=== PATIENT | male | born 1955 | race Caucasian/White ===

== ENCOUNTER → 2017-02-18 | Outpatient (CLI) | payer OTHER ==
[~2017-02-18] MED LIST: ALLO100T30 PO; OMNIPAQUE 350 MG/ML, 100ML BOTTLE ONE
[2017-02-18 15:39] LABS: ASPARTATE AMINO TRANSFERASE 16 U/L (15-37); BLOOD UREA NITROGEN 6 mg/dL (7-18)
[2017-02-18 15:45] LABS: PROSTATE SPECIFIC ANTIGEN 7.92 ng/mL (0.00-4.00)
== END | disposition home or self-care (01) ==
LOC: CFH 12:26
DX: N40.0 Benign prostatic hyperplasia without lower urinary tract symptoms (principal); N32.9 Bladder disorder, unspecified; M48.06 Spinal stenosis, lumbar region; M48.54XA Collapsed vertebra, not elsewhere classified, thoracic region, initial encounter for fracture; M87.88 Other osteonecrosis, other site; R63.4 Abnormal weight loss
CPT/HCPCS: 36415; 74177; 80053; 82565; 83690; 84153; 85025; Q9967

== ENCOUNTER → 2017-04-14 | Outpatient (CLI) | payer OTHER ==
[~2017-04-14] MED LIST changes: -OMNIPAQUE 350 MG/ML, 100ML BOTTLE ONE
== END | disposition home or self-care (01) ==
LOC: CFH 09:43
DX: R00.0 Tachycardia, unspecified (principal)
CPT/HCPCS: 36415; 84436; 84443; 84479

== ENCOUNTER 2018-03-24 16:55 | Emergency (ER) | payer OTHER ==
[~2018-03-24] VITALS: Ht 177.8 cm; Wt 82.1 kg
[2018-03-24 17:52] LABS: BASOPHILS # (AUTO) 0.03 x10^3/uL (0-0.1); BASOPHILS % (AUTO) 0 % (0-1); EOSINOPHILS # (AUTO) 0.09 x10^3/uL (0-0.4); EOSINOPHILS % (AUTO) 1 % (1-7); LYMPHOCYTES # (AUTO) 1.41 x10^3/uL (1-3.4); LYMPHOCYTES % (AUTO) 20 % (22-44); MD NO; MEAN CORPUSCULAR HEMOGLOBIN 29.5 pg (27.5-34.5); MEAN CORPUSCULAR HGB CONC 33.3 g/dL (33.2-36.2); MEAN CORPUSCULAR VOLUME 88.7 fL (81-97); MEAN PLATELET VOLUME 7.9 fL (7.4-10.4); MONOCYTES # (AUTO) 0.45 x10^3/uL (0.2-0.8); MONOCYTES % (AUTO) 6 % (2-9); NEUTROPHILS # (AUTO) 5.02 x10^3/uL (1.8-6.8); NEUTROPHILS % (AUTO) 72 % (42-75); PLATELET COUNT 253 x10^3/uL (130-400); RED BLOOD COUNT 4.42 x10^6/uL (4.38-5.82); RED CELL DISTRIBUTION WIDTH 15.6 % (9.4-14.8)
[2018-03-24 18:00] LABS: ALBUMIN 3.5 g/dL (3.4-5.0); ANION GAP 9 mmol/L (5-15); CALCIUM 8.4 mg/dL (8.5-10.1); CHLORIDE 111 mmol/L (98-107)
[2018-03-24] MEDS ORDERED: METOPROLOL 1 MG/ML, 5ML IVPush ONE (18:00)
[2018-03-24 18:01] LABS: CREATININE 1.21 mg/dL (0.7-1.3)
[2018-03-24] MEDS ORDERED: METOPROLOL 1 MG/ML, 5ML ONE (18:04)
[2018-03-24] MEDS ORDERED: SODIUM CHLORIDE FLUSH 10ML SYR IVF ONE (19:00)
[2018-03-24 19:08] VITALS: BP 163/88
[2018-03-24 19:23] LABS: MICROSCOPIC AUTO
[2018-03-24] MEDS ORDERED: LISINOPRIL 10 MG TABLET PO ONE (19:30)
[2018-03-24] MEDS ORDERED: LISINOPRIL 10 MG TABLET ONE (19:30)
[2018-03-24 19:43] LABS: CULTURE INDICATED? YES
== END 2018-03-24 19:46 | disposition home or self-care (01) ==
LOC: ED 19:05
DX: I16.9 Hypertensive crisis, unspecified (principal); R82.99 Other abnormal findings in urine
CPT/HCPCS: 36415; 71046; 80048; 81001; 82040; 85025; 87086; 93005; 96374

== ENCOUNTER 2018-05-03 11:01 | Inpatient (IN) | payer OTHER ==
[~2018-05-03] VITALS: Ht 177.8 cm; Wt 82.5 kg
[2018-05-03] MEDS ORDERED: ONDANSETRON ODT 4 MG PO ONE (13:00)
[2018-05-03] MEDS ORDERED: SODIUM CHLORIDE FLUSH 10ML SYR IVF ONE ×2 (13:00→14:00)
[2018-05-03] MEDS ORDERED: ONDANSETRON ODT 4 MG ONE (13:12)
[2018-05-03] MEDS ORDERED: MORPHINE SULFATE 4 MG/ML, 1ML ONE ×2 (13:12→13:35)
[2018-05-03] MEDS: MORPHINE SULFATE 4 MG/ML, 1ML IVPush PRN ×2 (13:18→13:37)
[2018-05-03 13:21] LABS: BASOPHILS # (AUTO) 0.07 x10^3/uL (0-0.1); BASOPHILS % (AUTO) 1 % (0-1); EOSINOPHILS # (AUTO) 0.07 x10^3/uL (0-0.4); EOSINOPHILS % (AUTO) 1 % (1-7); LYMPHOCYTES # (AUTO) 1.53 x10^3/uL (1-3.4); LYMPHOCYTES % (AUTO) 12 % (22-44); MD NO; MEAN CORPUSCULAR HEMOGLOBIN 29.6 pg (27.5-34.5); MEAN CORPUSCULAR HGB CONC 33.6 g/dL (33.2-36.2); MEAN CORPUSCULAR VOLUME 88.2 fL (81-97); MEAN PLATELET VOLUME 7.8 fL (7.4-10.4); MONOCYTES # (AUTO) 1.07 x10^3/uL (0.2-0.8); MONOCYTES % (AUTO) 9 % (2-9); NEUTROPHILS # (AUTO) 9.76 x10^3/uL (1.8-6.8); NEUTROPHILS % (AUTO) 78 % (42-75); PLATELET COUNT 243 x10^3/uL (130-400); RED BLOOD COUNT 4.55 x10^6/uL (4.38-5.82); RED CELL DISTRIBUTION WIDTH 14.4 % (9.4-14.8)
[2018-05-03 13:30] LABS: ALBUMIN 3.7 g/dL (3.4-5.0); ANION GAP 9 mmol/L (5-15); CALCIUM 8.8 mg/dL (8.5-10.1); CHLORIDE 102 mmol/L (98-107)
[2018-05-03 13:34] LABS: ALANINE AMINOTRANSFERASE 16 U/L (12-78); ALKALINE PHOSPHATASE 121 U/L (45-117); BILIRUBIN,TOTAL 2.1 mg/dL (0.2-1.0); CREATININE 1.64 mg/dL (0.7-1.3); TOTAL PROTEIN 7.4 g/dL (6.4-8.2)
[2018-05-03] MEDS ORDERED: HYDROmorphone 2 MG/ML, 1ML ONE (13:49)
[2018-05-03] MEDS ORDERED: SODIUM CHLORIDE 0.9% 1,000ML IVBOLUS ONE ×2 (14:00→16:00)
[2018-05-03] MEDS ORDERED: HYDROmorphone 2 MG/ML, 1ML IVPush PRN (14:00)
[2018-05-03 14:11] LABS: HCT (SEDRATE) 40.1 % (39.2-51.8)
[2018-05-03 14:57] LABS: CULTURE INDICATED? NO; MICROSCOPIC NOT IND
[2018-05-03] MEDS ORDERED: SODIUM BICARBONATE 4.0%, 5ML ONE (16:11)
[2018-05-03] MEDS ORDERED: LIDOCAINE-MPF 2%, 2ML ONE ×2 (16:11→16:12)
[2018-05-03] MEDS ORDERED: morphine SULFATE 10 MG/ML, 1ML IVPush PRN (17:00)
[2018-05-03] MEDS ORDERED: ONDANSETRON ODT 4 MG PO PRN (17:00)
[2018-05-03] MEDS ORDERED: ACETAMINOPHEN 325 MG TABLET PO PRN (17:00)
[2018-05-03] MEDS ORDERED: LISI-170 PO (17:15)
[2018-05-03] MEDS ORDERED: OMNIPAQUE 300 MG/ML, 10ML VIAL ONE (17:23)
[2018-05-03 17:52] VITALS: BP 117/71
[2018-05-03] MEDS: HEPARIN 5,000 UNITS/ML, 1ML SQ SCH (18:41)
[2018-05-03] MEDS: METHOCARBAMOL 500 MG TABLET PO PRN (18:41)
[2018-05-03] MEDS: SODIUM CHLORIDE 0.9% 1,000 ML IV SCH (18:42)
[2018-05-03] MEDS: LIDODERM 5% PATCH TD SCH (18:42)
[2018-05-03 19:22] VITALS: BP 118/69
[2018-05-03] MEDS: HYDROmorphone 2 MG/ML, 1ML IVPush PRN (22:17)
[2018-05-04 01:09] VITALS: BP 108/65
[2018-05-04] MEDS: HEPARIN 5,000 UNITS/ML, 1ML SQ SCH ×3 (02:05→18:41)
[2018-05-04] MEDS: SODIUM CHLORIDE 0.9% 1,000 ML IV SCH ×3 (02:06→18:41)
[2018-05-04] MEDS: HYDROmorphone 2 MG/ML, 1ML IVPush PRN ×5 (02:10→20:45)
[2018-05-04] MEDS: METHOCARBAMOL 500 MG TABLET PO PRN (03:20)
[2018-05-04 05:43] LABS: BASOPHILS # (AUTO) 0.03 x10^3/uL (0-0.1); BASOPHILS % (AUTO) 0 % (0-1); EOSINOPHILS # (AUTO) 0.11 x10^3/uL (0-0.4); EOSINOPHILS % (AUTO) 1 % (1-7); LYMPHOCYTES # (AUTO) 1.93 x10^3/uL (1-3.4); LYMPHOCYTES % (AUTO) 25 % (22-44); MD NO; MEAN CORPUSCULAR HEMOGLOBIN 29.7 pg (27.5-34.5); MEAN CORPUSCULAR HGB CONC 33.2 g/dL (33.2-36.2); MEAN CORPUSCULAR VOLUME 89.5 fL (81-97); MEAN PLATELET VOLUME 8.2 fL (7.4-10.4); MONOCYTES # (AUTO) 0.84 x10^3/uL (0.2-0.8); MONOCYTES % (AUTO) 11 % (2-9); NEUTROPHILS # (AUTO) 4.98 x10^3/uL (1.8-6.8); NEUTROPHILS % (AUTO) 63 % (42-75); PLATELET COUNT 173 x10^3/uL (130-400); RED BLOOD COUNT 3.89 x10^6/uL (4.38-5.82); RED CELL DISTRIBUTION WIDTH 14.3 % (9.4-14.8)
[2018-05-04 05:55] LABS: CHLORIDE 106 mmol/L (98-107)
[2018-05-04 06:02] LABS: ALANINE AMINOTRANSFERASE 12 U/L (12-78); ALBUMIN 2.9 g/dL (3.4-5.0); ALKALINE PHOSPHATASE 96 U/L (45-117); ANION GAP 8 mmol/L (5-15); BILIRUBIN,TOTAL 1.4 mg/dL (0.2-1.0); CREATININE 1.06 mg/dL (0.7-1.3); TOTAL PROTEIN 6.2 g/dL (6.4-8.2)
[2018-05-04 06:58] VITALS: BP 120/69
[2018-05-04] MEDS ORDERED: GADOBUTROL 7.5 MMOL/7.5 ML PFS ONE ×2 (09:09→16:59)
[2018-05-04] MEDS: ALLOPURINOL 100 MG TABLET PO SCH (10:12)
[2018-05-04] MEDS: METHOCARBAMOL 500 MG TABLET PO SCH ×3 (10:18→22:42)
[2018-05-04] MEDS: IBUPROFEN 600 MG TABLET PO SCH ×3 (10:19→22:42)
[2018-05-04 12:23] VITALS: BP 100/64
[2018-05-04] MEDS: LIDODERM 5% PATCH TD SCH (18:41)
[2018-05-04 19:45] VITALS: BP 95/55
[2018-05-05 01:30] VITALS: BP 97/56
[2018-05-05] MEDS: SODIUM CHLORIDE 0.9% 1,000 ML IV SCH ×2 (02:12→08:48)
[2018-05-05] MEDS: HEPARIN 5,000 UNITS/ML, 1ML SQ SCH ×4 (03:09→23:01)
[2018-05-05] MEDS: IBUPROFEN 600 MG TABLET PO SCH (04:00)
[2018-05-05] MEDS: METHOCARBAMOL 500 MG TABLET PO SCH ×4 (06:00→23:00)
[2018-05-05 07:55] VITALS: BP 119/74
[2018-05-05] MEDS: OMEPRAZOLE 20 MG CAPSULE.DR PO SCH (09:00)
[2018-05-05] MEDS ORDERED: MAGNESIUM SULFATE PMX 2GM/50ML 50 ML IV ONE (09:00)
[2018-05-05] MEDS: KETOROLAC 30 MG/1 ML IVPush SCH ×3 (10:18→21:20)
[2018-05-05] MEDS: DEXAMETHASONE 4 MG TABLET PO SCH ×3 (10:21→21:20)
[2018-05-05] MEDS: ALLOPURINOL 100 MG TABLET PO SCH (10:21)
[2018-05-05 12:00] VITALS: BP 134/83
[2018-05-05] MEDS: HYDROmorphone 2 MG/ML, 1ML IVPush PRN ×2 (15:23→22:13)
[2018-05-05] MEDS: LIDODERM 5% PATCH TD SCH (17:30)
[2018-05-05 19:09] VITALS: BP 115/68
[2018-05-06 01:12] VITALS: BP 124/76
[2018-05-06] MEDS: DEXAMETHASONE 4 MG TABLET PO SCH ×4 (03:56→21:51)
[2018-05-06] MEDS: KETOROLAC 30 MG/1 ML IVPush SCH ×4 (03:56→21:56)
[2018-05-06] MEDS: METHOCARBAMOL 500 MG TABLET PO SCH ×4 (06:00→21:51)
[2018-05-06 07:21] VITALS: BP 127/80
[2018-05-06] MEDS: HYDROmorphone 2 MG/ML, 1ML IVPush PRN ×4 (09:29→22:44)
[2018-05-06] MEDS: OMEPRAZOLE 20 MG CAPSULE.DR PO SCH (09:29)
[2018-05-06] MEDS: ALLOPURINOL 100 MG TABLET PO SCH (09:29)
[2018-05-06] MEDS: HEPARIN 5,000 UNITS/ML, 1ML SQ SCH ×2 (09:30→17:46)
[2018-05-06 10:48] LABS: ALBUMIN 3.1 g/dL (3.4-5.0); ANION GAP 10 mmol/L (5-15); CALCIUM 9.1 mg/dL (8.5-10.1); CHLORIDE 106 mmol/L (98-107); CREATININE 1.35 mg/dL (0.7-1.3)
[2018-05-06 11:47] LABS: MEAN CORPUSCULAR HEMOGLOBIN 30.6 pg (27.5-34.5); MEAN CORPUSCULAR HGB CONC 34.1 g/dL (33.2-36.2); MEAN CORPUSCULAR VOLUME 89.7 fL (81-97); MEAN PLATELET VOLUME 8.7 fL (7.4-10.4); PLATELET COUNT 230 x10^3/uL (130-400); RED BLOOD COUNT 3.83 x10^6/uL (4.38-5.82); RED CELL DISTRIBUTION WIDTH 13.9 % (9.4-14.8)
[2018-05-06 12:14] LABS: BASOPHILS # (AUTO) 0.01 x10^3/uL (0-0.1); BASOPHILS % (AUTO) 0 % (0-1); EOSINOPHILS % (AUTO) 0 % (1-7); LYMPHOCYTES # (AUTO) 0.51 x10^3/uL (1-3.4); LYMPHOCYTES % (AUTO) 6 % (22-44); MD SCAN; MONOCYTES # (AUTO) 0.21 x10^3/uL (0.2-0.8); MONOCYTES % (AUTO) 3 % (2-9); NEUTROPHILS # (AUTO) 7.71 x10^3/uL (1.8-6.8); NEUTROPHILS % (AUTO) 91 % (42-75)
[2018-05-06 13:48] VITALS: BP 122/74
[2018-05-06] MEDS ORDERED: MAGNESIUM HYDROXIDE 8%, 30ML UDC PO PRN (17:00)
[2018-05-06] MEDS ORDERED: BISACODYL 10 MG SUPP PR PRN (17:00)
[2018-05-06] MEDS: LIDODERM 5% PATCH TD SCH (17:47)
[2018-05-06 20:40] VITALS: BP 138/81
[2018-05-07] MEDS: HEPARIN 5,000 UNITS/ML, 1ML SQ SCH ×3 (01:30→17:30)
[2018-05-07] MEDS: KETOROLAC 30 MG/1 ML IVPush SCH ×2 (03:51→10:58)
[2018-05-07] MEDS: DEXAMETHASONE 4 MG TABLET PO SCH ×5 (03:51→21:18)
[2018-05-07 03:54] VITALS: BP 121/72
[2018-05-07] MEDS: METHOCARBAMOL 500 MG TABLET PO SCH ×4 (05:42→21:18)
[2018-05-07 08:00] VITALS: BP 136/85
[2018-05-07] MEDS: MAGNESIUM CITRATE 300ML ORAL SOL PO SCH (10:58)
[2018-05-07] MEDS: OMEPRAZOLE 20 MG CAPSULE.DR PO SCH (10:58)
[2018-05-07] MEDS: ALLOPURINOL 100 MG TABLET PO SCH (10:58)
[2018-05-07] MEDS ORDERED: IBUPROFEN 200 MG TABLET PO PRN (11:30)
[2018-05-07 14:30] VITALS: BP 141/84
[2018-05-07] MEDS: HYDROcodone/APAP 5/325 TABLET PO PRN ×2 (15:00→21:18)
[2018-05-07] MEDS: LIDODERM 5% PATCH TD SCH (18:28)
[2018-05-07 18:50] VITALS: BP 153/84
[2018-05-07] MEDS: HYDROmorphone 2 MG/ML, 1ML IVPush PRN (22:32)
[2018-05-08 00:56] VITALS: BP 147/81
[2018-05-08] MEDS: HEPARIN 5,000 UNITS/ML, 1ML SQ SCH ×2 (01:10→09:30)
[2018-05-08] MEDS: HYDROcodone/APAP 5/325 TABLET PO PRN (03:22)
[2018-05-08 05:25] LABS: CALCIUM 9.1 mg/dL (8.5-10.1); CHLORIDE 111 mmol/L (98-107)
[2018-05-08 05:29] LABS: ANION GAP 7 mmol/L (5-15); CREATININE 1.31 mg/dL (0.7-1.3)
[2018-05-08 05:33] LABS: BASOPHILS # (AUTO) 0.01 x10^3/uL (0-0.1); BASOPHILS % (AUTO) 0 % (0-1); EOSINOPHILS % (AUTO) 0 % (1-7); LYMPHOCYTES # (AUTO) 0.51 x10^3/uL (1-3.4); LYMPHOCYTES % (AUTO) 7 % (22-44); MD NO; MEAN CORPUSCULAR HEMOGLOBIN 31.2 pg (27.5-34.5); MEAN CORPUSCULAR HGB CONC 34.7 g/dL (33.2-36.2); MEAN CORPUSCULAR VOLUME 89.9 fL (81-97); MEAN PLATELET VOLUME 8.3 fL (7.4-10.4); MONOCYTES # (AUTO) 0.17 x10^3/uL (0.2-0.8); MONOCYTES % (AUTO) 2 % (2-9); NEUTROPHILS # (AUTO) 6.98 x10^3/uL (1.8-6.8); NEUTROPHILS % (AUTO) 91 % (42-75); PLATELET COUNT 220 x10^3/uL (130-400); RED BLOOD COUNT 3.72 x10^6/uL (4.38-5.82); RED CELL DISTRIBUTION WIDTH 14.1 % (9.4-14.8)
[2018-05-08] MEDS: METHOCARBAMOL 500 MG TABLET PO SCH ×2 (06:01→11:08)
[2018-05-08 07:27] VITALS: BP 144/79
[2018-05-08] MEDS ORDERED: SODIUM POLYSTYRENE SULFONATE ORAL SUSP PO ONE (07:30)
[2018-05-08] MEDS ORDERED: SODIUM CHLORIDE 0.9% 1,000ML IVBOLUS ONE (07:30)
[2018-05-08] MEDS: OMEPRAZOLE 20 MG CAPSULE.DR PO SCH (07:50)
[2018-05-08] MEDS: MAGNESIUM CITRATE 300ML ORAL SOL PO SCH (09:00)
[2018-05-08] MEDS: ALLOPURINOL 100 MG TABLET PO SCH (11:09)
[2018-05-08] MEDS: DEXAMETHASONE 4 MG TABLET PO SCH (11:09)
[2018-05-08] MEDS ORDERED: SODIUM CHLORIDE 0.9%, 500ML IVBOLUS ONE (11:30)
[2018-05-08 13:47] LABS: ANION GAP 9 mmol/L (5-15); CALCIUM 8.9 mg/dL (8.5-10.1); CHLORIDE 110 mmol/L (98-107); CREATININE 1.23 mg/dL (0.7-1.3)
[2018-05-08] MEDS ORDERED: OMEP-110 PO (14:59)
[2018-05-08] MEDS ORDERED: HYDR-3240 PO (14:59)
[2018-05-08] MEDS ORDERED: METH500T7 PO (14:59)
[2018-05-08] MEDS ORDERED: DEXA4TAB66 PO (14:59)
== END 2018-05-08 15:39 | disposition home or self-care (01) | DRG 553 ==
LOC: ED 14:00 → EDIP 16:14 → INTOOBSV 16:14 → 3NE 17:06 → OBSVTOIN 05-04 13:07
PROVIDERS: ADMIT Hospitalist; ATTEND Hospitalist
PROC: BQ111ZZ Fluoroscopy of Left Hip using Low Osmolar Contrast (ICD-10-PCS; principal; 2018-05-04)
PROC: 0S9B3ZZ Drainage of Left Hip Joint, Percutaneous Approach (ICD-10-PCS; 2018-05-04)
DX: M87.852 Other osteonecrosis, left femur (principal); N17.0 Acute kidney failure with tubular necrosis; E87.1 Hypo-osmolality and hyponatremia; M16.12 Unilateral primary osteoarthritis, left hip; Z96.641 Presence of right artificial hip joint; N40.0 Benign prostatic hyperplasia without lower urinary tract symptoms; N20.0 Calculus of kidney; M48.061 Spinal stenosis, lumbar region without neurogenic claudication; D72.829 Elevated white blood cell count, unspecified; E11.65 Type 2 diabetes mellitus with hyperglycemia; I10 Essential (primary) hypertension; M10.9 Gout, unspecified; E83.42 Hypomagnesemia; K22.70 Barrett's esophagus without dysplasia; D64.9 Anemia, unspecified; R26.2 Difficulty in walking, not elsewhere classified; Z98.1 Arthrodesis status; Z79.84 Long term (current) use of oral hypoglycemic drugs; Z82.3 Family history of stroke; Z72.89 Other problems related to lifestyle; Z79.899 Other long term (current) drug therapy
CPT/HCPCS: 36415; 72157; 72158; 74176; 77002; 80048; 80053; 81003; 82040; 83036; 83735; 84100; 85025; 85651; 86140; 87070; 87205; 93005; 96361; 96374; 96375; 99285; A9585; G0378; J1170; J1644; J1885; J3490; Q0162; Q9967; J2270; J3475; J7030; J7040

== ENCOUNTER 2018-05-20 13:41 | Inpatient (IN) | payer OTHER ==
[~2018-05-20] VITALS: Ht 177.8 cm; Wt 83.0 kg
[~2018-05-20 13:41] MED LIST changes: +DEXA4TAB66 PO; +HYDR-3240 PO; +LISI-170 PO; +METH500T7 PO; +OMEP-110 PO
[2018-05-20] MEDS ORDERED: SODIUM CHLORIDE 0.9% 1,000ML IV ONE (14:30)
[2018-05-20] MEDS ORDERED: ACETAMINOPHEN 500 MG TABLET PO ONE (14:30)
[2018-05-20] MEDS ORDERED: SODIUM CHLORIDE FLUSH 10ML SYR IVF ONE (14:30)
[2018-05-20] MEDS ORDERED: ONDANSETRON 2MG/ML, 2ML IVPush ONE (14:30)
[2018-05-20 14:40] LABS: BASOPHILS # (AUTO) 0.01 x10^3/uL (0-0.1); BASOPHILS % (AUTO) 0 % (0-1); EOSINOPHILS # (AUTO) 0.01 x10^3/uL (0-0.4); EOSINOPHILS % (AUTO) 0 % (1-7); LYMPHOCYTES # (AUTO) 0.63 x10^3/uL (1-3.4); LYMPHOCYTES % (AUTO) 4 % (22-44); MD NO; MEAN CORPUSCULAR HEMOGLOBIN 29.9 pg (27.5-34.5); MEAN CORPUSCULAR HGB CONC 33.9 g/dL (33.2-36.2); MEAN CORPUSCULAR VOLUME 88.2 fL (81-97); MEAN PLATELET VOLUME 7.8 fL (7.4-10.4); MONOCYTES # (AUTO) 1.02 x10^3/uL (0.2-0.8); MONOCYTES % (AUTO) 7 % (2-9); NEUTROPHILS # (AUTO) 14.09 x10^3/uL (1.8-6.8); NEUTROPHILS % (AUTO) 89 % (42-75); PLATELET COUNT 198 x10^3/uL (130-400); RED BLOOD COUNT 4.78 x10^6/uL (4.38-5.82); RED CELL DISTRIBUTION WIDTH 14.6 % (9.4-14.8)
[2018-05-20] MEDS ORDERED: ONDANSETRON 2MG/ML, 2ML ONE (14:40)
[2018-05-20] MEDS ORDERED: ACETAMINOPHEN 500 MG TABLET ONE (14:41)
[2018-05-20] MEDS ORDERED: HYDROmorphone 2 MG/ML, 1ML ONE ×2 (14:41→15:00)
[2018-05-20] MEDS: HYDROmorphone 2 MG/ML, 1ML IVPush PRN ×2 (14:47→15:04)
[2018-05-20 14:51] LABS: ALANINE AMINOTRANSFERASE 17 U/L (12-78); ALBUMIN 3.5 g/dL (3.4-5.0); ANION GAP 13 mmol/L (5-15); CALCIUM 9.5 mg/dL (8.5-10.1); CHLORIDE 100 mmol/L (98-107)
[2018-05-20 14:58] LABS: ALKALINE PHOSPHATASE 180 U/L (45-117); BILIRUBIN,TOTAL 3.1 mg/dL (0.2-1.0); TOTAL PROTEIN 7.5 g/dL (6.4-8.2)
[2018-05-20 15:20] LABS: HCT (SEDRATE) 42.1 % (39.2-51.8)
[2018-05-20] MEDS ORDERED: DIAZEPAM 5 MG/ML, 2ML IV ONE ×2 (15:30→16:00)
[2018-05-20] MEDS ORDERED: ALLO300T PO (16:07)
[2018-05-20] MEDS ORDERED: SODIUM CHLORIDE 0.9% 1,000 ML IV ONE (17:00)
[2018-05-20] MEDS ORDERED: OXYcodone/APAP 10/325MG TABLET ONE (17:05)
[2018-05-20] MEDS ORDERED: OXYcodone IR 5MG TABLET ONE (17:10)
[2018-05-20] MEDS ORDERED: ONDANSETRON 2MG/ML, 2ML IVPush PRN (17:30)
[2018-05-20] MEDS ORDERED: POLYETHYLENE GLYCOL 17 GM PACKET PO PRN (17:30)
[2018-05-20] MEDS ORDERED: DOCUSATE 100 MG CAPSULE PO PRN (17:30)
[2018-05-20] MEDS ORDERED: LABETALOL 5MG/ML, 20ML IVPush PRN (17:30)
[2018-05-20] MEDS ORDERED: OXYcodone IR 5MG TABLET PO ONE (17:30)
[2018-05-20] MEDS ORDERED: BISACODYL 10 MG SUPP PR PRN (17:30)
[2018-05-20] MEDS ORDERED: ACETAMINOPHEN 325 MG TABLET PO PRN (17:30)
[2018-05-20 18:43] VITALS: BP 128/82
[2018-05-20] MEDS: NS + 20MEQ KCL 1,000 ML IV SCH (19:57)
[2018-05-20] MEDS: MORPHINE SULFATE 4 MG/ML, 1ML IVPush PRN ×2 (19:58→23:22)
[2018-05-20] MEDS: INSULIN LISPRO 100 UNITS/ML, PEN SQ-INSULIN SCH (21:00)
[2018-05-20 21:49] LABS: MICROSCOPIC AUTO
[2018-05-20 21:54] LABS: CULTURE INDICATED? YES
[2018-05-20] MEDS: HYDROcodone/APAP 5/325 TABLET PO PRN (22:28)
[2018-05-21 01:15] VITALS: BP 131/79
[2018-05-21] MEDS: MORPHINE SULFATE 4 MG/ML, 1ML IVPush PRN ×2 (02:45→16:02)
[2018-05-21] MEDS: KETOROLAC 30 MG/1 ML IVPush PRN ×3 (04:56→22:21)
[2018-05-21 05:30] LABS: ALBUMIN 2.9 g/dL (3.4-5.0); ANION GAP 10 mmol/L (5-15); CALCIUM 8.2 mg/dL (8.5-10.1); CHLORIDE 104 mmol/L (98-107)
[2018-05-21 05:31] LABS: HEMOGLOBIN A1C 6.5 % (4.2-6.3)
[2018-05-21 05:34] LABS: ALANINE AMINOTRANSFERASE 13 U/L (12-78); ALKALINE PHOSPHATASE 127 U/L (45-117); BASOPHILS # (AUTO) 0.03 x10^3/uL (0-0.1); BASOPHILS % (AUTO) 0 % (0-1); BILIRUBIN,TOTAL 2.4 mg/dL (0.2-1.0); EOSINOPHILS # (AUTO) 0.11 x10^3/uL (0-0.4); EOSINOPHILS % (AUTO) 1 % (1-7); LYMPHOCYTES # (AUTO) 1.78 x10^3/uL (1-3.4); LYMPHOCYTES % (AUTO) 18 % (22-44); MD NO; MEAN CORPUSCULAR HGB CONC 33.6 g/dL (33.2-36.2); MEAN CORPUSCULAR VOLUME 89.3 fL (81-97); MEAN PLATELET VOLUME 7.9 fL (7.4-10.4); MONOCYTES # (AUTO) 1.02 x10^3/uL (0.2-0.8); MONOCYTES % (AUTO) 11 % (2-9); NEUTROPHILS # (AUTO) 6.75 x10^3/uL (1.8-6.8); NEUTROPHILS % (AUTO) 70 % (42-75); PLATELET COUNT 149 x10^3/uL (130-400); RED BLOOD COUNT 3.83 x10^6/uL (4.38-5.82); RED CELL DISTRIBUTION WIDTH 14.7 % (9.4-14.8); TOTAL PROTEIN 6.3 g/dL (6.4-8.2)
[2018-05-21] MEDS: NS + 20MEQ KCL 1,000 ML IV SCH (06:50)
[2018-05-21] MEDS: HYDROcodone/APAP 5/325 TABLET PO PRN ×2 (06:50→14:10)
[2018-05-21] MEDS: INSULIN LISPRO 100 UNITS/ML, PEN SQ-INSULIN SCH ×4 (07:00→19:47)
[2018-05-21 08:01] VITALS: BP 129/82
[2018-05-21] MEDS: ALLOPURINOL 300 MG TABLET PO SCH (09:54)
[2018-05-21] MEDS: LISINOPRIL 20 MG TABLET PO SCH (09:54)
[2018-05-21] MEDS: OMEPRAZOLE 20 MG CAPSULE.DR PO SCH (09:54)
[2018-05-21] MEDS: DIAZEPAM 5 MG/ML, 2ML IV PRN ×2 (09:54→22:21)
[2018-05-21 10:58] LABS: SYN CELLS COUNTED 2
[2018-05-21] MEDS ORDERED: LIDOCAINE-MPF 2%, 2ML ONE (11:49)
[2018-05-21 13:23] VITALS: BP 126/80
[2018-05-21 20:23] VITALS: BP 138/80
[2018-05-22 00:49] VITALS: BP 121/75
[2018-05-22 05:13] LABS: BASOPHILS # (AUTO) 0.03 x10^3/uL (0-0.1); BASOPHILS % (AUTO) 0 % (0-1); EOSINOPHILS % (AUTO) 1 % (1-7); LYMPHOCYTES # (AUTO) 1.03 x10^3/uL (1-3.4); LYMPHOCYTES % (AUTO) 12 % (22-44); MD NO; MEAN CORPUSCULAR HEMOGLOBIN 30.4 pg (27.5-34.5); MEAN CORPUSCULAR VOLUME 89.6 fL (81-97); MEAN PLATELET VOLUME 7.5 fL (7.4-10.4); MONOCYTES # (AUTO) 0.57 x10^3/uL (0.2-0.8); MONOCYTES % (AUTO) 7 % (2-9); NEUTROPHILS # (AUTO) 6.93 x10^3/uL (1.8-6.8); NEUTROPHILS % (AUTO) 80 % (42-75); PLATELET COUNT 131 x10^3/uL (130-400); RED BLOOD COUNT 3.41 x10^6/uL (4.38-5.82); RED CELL DISTRIBUTION WIDTH 14.1 % (9.4-14.8)
[2018-05-22 05:21] LABS: ALBUMIN 2.5 g/dL (3.4-5.0); ANION GAP 8 mmol/L (5-15); CALCIUM 8.4 mg/dL (8.5-10.1); CHLORIDE 105 mmol/L (98-107)
[2018-05-22 05:24] LABS: ALANINE AMINOTRANSFERASE 36 U/L (12-78); ALKALINE PHOSPHATASE 176 U/L (45-117); BILIRUBIN,TOTAL 1.7 mg/dL (0.2-1.0); CREATININE 1.28 mg/dL (0.7-1.3); TOTAL PROTEIN 5.7 g/dL (6.4-8.2)
[2018-05-22] MEDS: INSULIN LISPRO 100 UNITS/ML, PEN SQ-INSULIN SCH ×2 (07:00→11:00)
[2018-05-22 07:40] VITALS: BP 125/66
[2018-05-22] MEDS ORDERED: LORazepam 2 MG/ML, 1ML IVPush ONE (08:30)
[2018-05-22] MEDS: ALLOPURINOL 300 MG TABLET PO SCH (09:05)
[2018-05-22] MEDS: KETOROLAC 30 MG/1 ML IVPush PRN (09:05)
[2018-05-22] MEDS: LISINOPRIL 20 MG TABLET PO SCH (09:05)
[2018-05-22] MEDS: OMEPRAZOLE 20 MG CAPSULE.DR PO SCH (09:05)
[2018-05-22] MEDS: MORPHINE SULFATE 4 MG/ML, 1ML IVPush PRN (12:49)
[2018-05-22] MEDS ORDERED: DEXA4TAB66 PO (14:06)
[2018-05-22] MEDS ORDERED: METH500T7 PO (14:06)
[2018-05-22 14:25] VITALS: BP 112/65
== END 2018-05-22 15:15 | disposition home or self-care (01) | DRG 553 ==
LOC: ED 14:28 → EDIP 16:33 → 3NE 17:52
PROVIDERS: ADMIT Internal Medicine; ATTEND Internal Medicine
PROC: 0SJB3ZZ Inspection of Left Hip Joint, Percutaneous Approach (ICD-10-PCS; principal; 2018-05-21)
DX: M16.12 Unilateral primary osteoarthritis, left hip (principal); N17.0 Acute kidney failure with tubular necrosis; E87.1 Hypo-osmolality and hyponatremia; E87.2 Acidosis; M87.852 Other osteonecrosis, left femur; R65.10 Systemic inflammatory response syndrome (SIRS) of non-infectious origin without acute organ dysfunction; E11.65 Type 2 diabetes mellitus with hyperglycemia; I11.9 Hypertensive heart disease without heart failure; K21.9 Gastro-esophageal reflux disease without esophagitis; M10.9 Gout, unspecified; R74.0 Nonspecific elevation of levels of transaminase and lactic acid dehydrogenase [LDH]; K22.70 Barrett's esophagus without dysplasia; K80.20 Calculus of gallbladder without cholecystitis without obstruction; N28.1 Cyst of kidney, acquired; Z79.84 Long term (current) use of oral hypoglycemic drugs; Z82.3 Family history of stroke
CPT/HCPCS: 20611; 36415; 71045; 74181; 76700; 80053; 81001; 82962; 83036; 83605; 84145; 85025; 85651; 85810; 86140; 87040; 87070; 87075; 87086; 87205; 89050; 89060; 93005; 96361; 96374; 96375; G0378; J1170; J1885; J2405; J3360; J3480; J3490; J2060; J7030

== ENCOUNTER → 2018-06-08 | Outpatient (CLI) | payer OTHER ==
[~2018-06-08] MED LIST changes: +ALLO300T PO
[2018-06-08 11:48] LABS: CHLORIDE 104 mmol/L (98-107)
[2018-06-08 11:49] LABS: BASOPHILS # (AUTO) 0.03 x10^3/uL (0-0.1); BASOPHILS % (AUTO) 0 % (0-1); EOSINOPHILS # (AUTO) 0.15 x10^3/uL (0-0.4); EOSINOPHILS % (AUTO) 2 % (1-7); INTERNATIONAL NORMALIZED RATIO 0.99 (0.93-1.1); LYMPHOCYTES # (AUTO) 1.16 x10^3/uL (1-3.4); LYMPHOCYTES % (AUTO) 14 % (22-44); MD NO; MEAN CORPUSCULAR HEMOGLOBIN 30.5 pg (27.5-34.5); MEAN CORPUSCULAR HGB CONC 33.9 g/dL (33.2-36.2); MEAN CORPUSCULAR VOLUME 89.9 fL (81-97); MEAN PLATELET VOLUME 7.8 fL (7.4-10.4); MONOCYTES # (AUTO) 0.94 x10^3/uL (0.2-0.8); MONOCYTES % (AUTO) 11 % (2-9); NEUTROPHILS # (AUTO) 6.13 x10^3/uL (1.8-6.8); NEUTROPHILS % (AUTO) 73 % (42-75); PLATELET COUNT 226 x10^3/uL (130-400); PROTHROMBIN TIME 10.2 Seconds (9.6-11.5); RED CELL DISTRIBUTION WIDTH 14.9 % (9.4-14.8)
[2018-06-08 11:55] LABS: ALANINE AMINOTRANSFERASE 18 U/L (12-78); ALBUMIN 3.2 g/dL (3.4-5.0); ALKALINE PHOSPHATASE 149 U/L (45-117); ANION GAP 9 mmol/L (5-15); BILIRUBIN,TOTAL 0.5 mg/dL (0.2-1.0); CALCIUM 8.4 mg/dL (8.5-10.1); CREATININE 1.72 mg/dL (0.7-1.3); TOTAL PROTEIN 6.8 g/dL (6.4-8.2)
[2018-06-08 12:23] LABS: MICROSCOPIC NOT IND
[2018-06-08 12:30] LABS: CULTURE INDICATED? NO
== END | disposition home or self-care (01) ==
LOC: LAB 11:19
PROVIDERS: ATTEND Nurse Practitioner Primary Care
DX: Z01.818 Encounter for other preprocedural examination (principal)
CPT/HCPCS: 36415; 80053; 81003; 85025; 85610; 85730

== ENCOUNTER → 2018-06-08 | Outpatient (CLI) | payer OTHER | END | disposition home or self-care (01) | LOC: CVU 06:58 | PROVIDERS: ATTEND Internal Medicine Cardiovascular Disease | DX: Z01.818 Encounter for other preprocedural examination (principal); I47.1 Supraventricular tachycardia; I10 Essential (primary) hypertension; K22.70 Barrett's esophagus without dysplasia | CPT/HCPCS: 93306 ==

== ENCOUNTER → 2018-07-01 | Outpatient (CLI) | payer OTHER ==
[~2018-07-01] MED LIST changes: +ASPI-621 PO; +CELE200C PO; +DOCU-131 PO; +EPINEPHRINE 1 MG/ML, 1ML ONE; +KETOROLAC 60 MG/2 ML ONE; +ONDA4TAB10 PO; +OXYC5TAB3 PO; +ROPIvacaine/PF 0.2%, 20 ML ONE; +TRAM50TA2 PO; +TRANEXAMIC ACID 100 MG/ML, 10ML ONE
[2018-07-01 13:59] LABS: HEMOGLOBIN A1C 6.6 % (4.2-6.3)
== END | disposition home or self-care (01) ==
LOC: STAR 12:46
PROVIDERS: ATTEND Orthopaedic Surgery
DX: Z01.818 Encounter for other preprocedural examination (principal); M16.12 Unilateral primary osteoarthritis, left hip; E11.9 Type 2 diabetes mellitus without complications
CPT/HCPCS: 36415; 83036; 85651; 86140; 87081; 87806; G0475

== ENCOUNTER 2018-07-05 07:29 | Inpatient (IN) | payer OTHER ==
[2018-06-30 09:03] VITALS: BP 121/79
[~2018-07-05] VITALS: Ht 177.8 cm; Wt 84.7 kg
[~2018-07-05 07:29] MED LIST changes: -ASPI-621 PO; -CELE200C PO; -DOCU-131 PO; +KETOROLAC 30 MG/1 ML ONE; -KETOROLAC 60 MG/2 ML ONE; -ONDA4TAB10 PO; -OXYC5TAB3 PO; -TRAM50TA2 PO; -TRANEXAMIC ACID 100 MG/ML, 10ML ONE
[2018-07-05] MEDS ORDERED: MIDAZOLAM 1 MG/ML, 2ML ONE (07:53)
[2018-07-05] MEDS ORDERED: FENTANYL PF 250 MCG/5ML ONE (07:53)
[2018-07-05] MEDS ORDERED: LACTATED RINGERS 1,000 ML IV SCH (08:07)
[2018-07-05] MEDS ORDERED: LIDOCAINE-MPF 1%, 2ML INFIL ONE (08:30)
[2018-07-05] MEDS ORDERED: GABAPENTIN 300 MG CAPSULE PO ONE (08:30)
[2018-07-05] MEDS ORDERED: ALUMINUM/MAG/SIMETHICONE 30 ML UDC PO PRN (08:30)
[2018-07-05] MEDS ORDERED: ONDANSETRON 2MG/ML, 2ML IV PRN ×2 (08:30→09:30)
[2018-07-05] MEDS ORDERED: ACETAMINOPHEN 500 MG TABLET PO ONE (08:30)
[2018-07-05] MEDS ORDERED: DIPHENHYDRAMINE 25 MG CAPSULE PO PRN (08:30)
[2018-07-05] MEDS ORDERED: MAGNESIUM HYDROXIDE 8%, 30ML UDC PO PRN (08:30)
[2018-07-05] MEDS ORDERED: PROMETHAZINE 25 MG/ML, 1ML IM PRN (08:30)
[2018-07-05] MEDS ORDERED: ONDANSETRON 4 MG TABLET PO PRN (08:30)
[2018-07-05] MEDS ORDERED: CEFAZOLIN PMX 1GM/50ML 50 ML IVPB SCH (08:30)
[2018-07-05] MEDS ORDERED: ACETAMINOPHEN 650 MG/20.3 ML UDC PO PRN (08:30)
[2018-07-05] MEDS ORDERED: SENNA/DOCUSATE TABLET PO PRN (08:30)
[2018-07-05] MEDS ORDERED: PROMETHAZINE 12.5 MG SUPP PR PRN (08:30)
[2018-07-05] MEDS ORDERED: PROPOFOL 10 MG/ML, 20ML ONE (08:43)
[2018-07-05] MEDS ORDERED: ONDANSETRON 2MG/ML, 2ML ONE (08:43)
[2018-07-05] MEDS ORDERED: ROCURONIUM 10MG/ML,5ML ONE (08:43)
[2018-07-05] MEDS ORDERED: GLYCOPYRROLATE 0.2MG/1ML, 5ML ONE (08:43)
[2018-07-05] MEDS ORDERED: NEOSTIGMINE 1 MG/ML, 10ML ONE (08:43)
[2018-07-05] MEDS ORDERED: CEFAZOLIN 1,000 MG ONE (08:43)
[2018-07-05] MEDS ORDERED: DEXAMETHASONE 4 MG/ML, 1ML ONE (08:43)
[2018-07-05] MEDS ORDERED: SUCCINYLCHOLINE 20 MG/ML, 10ML ONE (08:43)
[2018-07-05] MEDS: DOCUSATE 100 MG CAPSULE PO SCH ×2 (09:00→19:25)
[2018-07-05] MEDS: TAMSULOSIN 0.4 MG CAP.ER.24H PO SCH (09:00)
[2018-07-05] MEDS ORDERED: FENTANYL PF 100 MCG/2ML ONE ×2 (09:24→10:12)
[2018-07-05] MEDS ORDERED: LABETALOL 5MG/ML, 20ML IV PRN (09:30)
[2018-07-05] MEDS ORDERED: MORPHINE SULFATE 4 MG/ML, 1ML IVPush PRN (09:30)
[2018-07-05] MEDS ORDERED: hydrALAzine 20 MG/ML, 1ML IV PRN (09:30)
[2018-07-05] MEDS ORDERED: ONDANSETRON ODT 8 MG PO PRN (09:30)
[2018-07-05] MEDS ORDERED: OXYcodone 5 MG/5 ML ORAL.SOL UDC PO PRN (09:30)
[2018-07-05] MEDS ORDERED: LORazepam 2 MG/ML, 1ML IVPush PRN (09:30)
[2018-07-05] MEDS ORDERED: MEPERIDINE/PF 25MG/0.5ML IVPush PRN (09:30)
[2018-07-05] MEDS ORDERED: PROCHLORPERAZINE 5 MG/ML, 2ML IV PRN (09:30)
[2018-07-05] MEDS ORDERED: HYDROmorphone 2 MG/ML, 1ML ONE (10:12)
[2018-07-05] MEDS: FENTANYL PF 100 MCG/2ML IV PRN ×2 (10:15→10:25)
[2018-07-05] MEDS: HYDROmorphone 1 MG/ML, 1ML IV PRN ×4 (10:20→10:55)
[2018-07-05] MEDS ORDERED: MEPERIDINE/PF 50 MG/ML ONE (10:22)
[2018-07-05] MEDS ORDERED: LORazepam 2 MG/ML, 1ML ONE (10:36)
[2018-07-05] MEDS ORDERED: OXYcodone 5 MG/5 ML ORAL.SOL UDC ONE (10:58)
[2018-07-05] MEDS ORDERED: TRANEXAMIC ACID 1,000 MG in SODIUM CHLORIDE 0.9% 100 ML IVPB ONE (11:00)
[2018-07-05 12:11] VITALS: BP 109/76
[2018-07-05] MEDS: OXYcodone IR 5MG TABLET PO PRN ×3 (14:12→19:25)
[2018-07-05] MEDS: D5%-0.45NACL+KCL 20MEQ 1,000 ML IV SCH ×2 (14:13→22:30)
[2018-07-05] MEDS: CEFAZOLIN PMX 1GM/50ML 50 ML IVPB SCH (16:35)
[2018-07-05] MEDS: ASPIRIN 81 MG TABLET EC PO SCH (18:10)
[2018-07-05 19:24] VITALS: BP 126/78
[2018-07-06 00:12] VITALS: BP 115/70
[2018-07-06] MEDS: CEFAZOLIN PMX 1GM/50ML 50 ML IVPB SCH (00:21)
[2018-07-06] MEDS: OXYcodone IR 5MG TABLET PO PRN ×2 (00:21→04:55)
[2018-07-06] MEDS ORDERED: HYDROmorphone 2 MG/ML, 1ML ONE ×2 (02:35→02:47)
[2018-07-06] MEDS: HYDROmorphone 1 MG/ML, 1ML IV PRN ×2 (02:36→02:48)
[2018-07-06 03:25] VITALS: BP 104/59
[2018-07-06] MEDS: ASPIRIN 81 MG TABLET EC PO SCH (05:07)
[2018-07-06] MEDS ORDERED: DEXAMETHASONE 4 MG/ML, 1ML IVPush SCH (06:00)
[2018-07-06 07:14] VITALS: BP 110/67
[2018-07-06] MEDS: D5%-0.45NACL+KCL 20MEQ 1,000 ML IV SCH (08:30)
[2018-07-06] MEDS ORDERED: KETOROLAC 30 MG/1 ML IV SCH (08:30)
[2018-07-06] MEDS: TAMSULOSIN 0.4 MG CAP.ER.24H PO SCH (08:37)
[2018-07-06] MEDS: DOCUSATE 100 MG CAPSULE PO SCH (08:37)
[2018-07-06] MEDS ORDERED: ASPI-621 PO (08:51)
[2018-07-06] MEDS ORDERED: DOCU-131 PO (08:52)
[2018-07-06] MEDS ORDERED: ONDA4TAB10 PO (08:53)
[2018-07-06] MEDS ORDERED: TRAM50TA2 PO (08:54)
[2018-07-06] MEDS ORDERED: CELE200C PO (08:54)
[2018-07-06] MEDS ORDERED: OXYC5TAB3 PO (08:55)
== END 2018-07-06 12:03 | disposition home or self-care (01) | DRG 470 ==
LOC: ORIP 07:29 → EDSTATUS 09:00 → 4NOR 12:00 → DCLOUNGE 07-06 11:50
PROVIDERS: ADMIT Orthopaedic Surgery; ATTEND Orthopaedic Surgery
PROC: 0SR906Z Replacement of Right Hip Joint with Oxidized Zirconium on Polyethylene Synthetic Substitute, Open Approach (ICD-10-PCS; principal; 2018-07-05 09:00)
DX: M16.12 Unilateral primary osteoarthritis, left hip (principal); M87.852 Other osteonecrosis, left femur; M06.9 Rheumatoid arthritis, unspecified; Z79.899 Other long term (current) drug therapy; Z96.641 Presence of right artificial hip joint; M48.061 Spinal stenosis, lumbar region without neurogenic claudication; I10 Essential (primary) hypertension
CPT/HCPCS: 36415; 72170; J3490; 82962; 85014; 85018; 86850; 86900; C1713; G0378; J0171; J0690; J1100; J1170; J1885; J2175; J2250; J2405; J2704; J2710; J2795; J3010; Q0162; C1776; J0330; J2060; J3480; J7120

== ENCOUNTER 2018-09-13 14:00 | Inpatient (IN) | payer OTHER, MEDICAID ==
[~2018-09-13] VITALS: Ht 177.8 cm; Wt 85.6 kg
[~2018-09-13 14:00] MED LIST changes: +ASPI81TA45 PO; +CELE200C PO; +DOCU-131 PO; -EPINEPHRINE 1 MG/ML, 1ML ONE; -KETOROLAC 30 MG/1 ML ONE; +ONDA4TAB10 PO; +OXYC5TAB3 PO; -ROPIvacaine/PF 0.2%, 20 ML ONE; +TRAM50TA2 PO
[2018-09-27] MEDS ORDERED: KETOROLAC 60 MG/2 ML ONE (08:37)
[2018-09-27] MEDS ORDERED: EPINEPHRINE 1 MG/ML, 1ML ONE (08:38)
[2018-09-27] MEDS ORDERED: ROPIvacaine/PF 0.2%, 20 ML ONE (08:38)
[2018-09-27] MEDS ORDERED: TRANEXAMIC ACID 100 MG/ML, 10ML ONE ×4 (08:38)
[2018-09-27] MEDS ORDERED: LACTATED RINGERS 1,000 ML IV SCH (09:28)
[2018-09-27] MEDS ORDERED: GABAPENTIN 300 MG CAPSULE PO ONE (09:30)
[2018-09-27] MEDS ORDERED: VANCOMYCIN PER PHARMACY MC ONE (09:30)
[2018-09-27] MEDS ORDERED: LIDOCAINE-MPF 1%, 2ML INFIL ONE (09:30)
[2018-09-27] MEDS ORDERED: ACETAMINOPHEN 500 MG TABLET PO ONE (09:30)
[2018-09-27] MEDS ORDERED: VANCOMYCIN 1,500 MG in SODIUM CHLORIDE 0.9% 250 ML IV ONE (10:00)
[2018-09-27] MEDS ORDERED: FENTANYL PF 250 MCG/5ML ONE (10:13)
[2018-09-27] MEDS ORDERED: MIDAZOLAM 1 MG/ML, 2ML ONE ×2 (10:13→13:46)
[2018-09-27] MEDS ORDERED: PHENYLEPHRINE 10 MG/ML ONE (11:22)
[2018-09-27] MEDS ORDERED: PROMETHAZINE 25 MG/ML, 1ML IM PRN (11:30)
[2018-09-27] MEDS ORDERED: DIPHENHYDRAMINE 50 MG CAPSULE PO PRN (11:30)
[2018-09-27] MEDS ORDERED: ACETAMINOPHEN 650 MG/20.3 ML UDC PO PRN (11:30)
[2018-09-27] MEDS ORDERED: PROMETHAZINE 12.5 MG SUPP PR PRN (11:30)
[2018-09-27] MEDS ORDERED: ALUMINUM/MAG/SIMETHICONE 30 ML UDC PO PRN (11:30)
[2018-09-27] MEDS ORDERED: MAGNESIUM HYDROXIDE 8%, 30ML UDC PO PRN (11:30)
[2018-09-27] MEDS ORDERED: SENNA/DOCUSATE TABLET PO PRN (11:30)
[2018-09-27] MEDS ORDERED: BISACODYL 10 MG SUPP PR PRN (11:30)
[2018-09-27] MEDS ORDERED: ONDANSETRON 2MG/ML, 2ML IV PRN ×2 (11:30→12:30)
[2018-09-27] MEDS ORDERED: TRANEXAMIC ACID 1,000 MG in SODIUM CHLORIDE 0.9% 100 ML IVPB ONE (11:30)
[2018-09-27] MEDS ORDERED: ALBUTEROL/IPRATROPIUM 2.5MG/0.5MG, 3 ML NPPB PRN (12:30)
[2018-09-27] MEDS ORDERED: MEPERIDINE/PF 25MG/0.5ML IVPush PRN (12:30)
[2018-09-27] MEDS ORDERED: hydrALAzine 20 MG/ML, 1ML IV PRN (12:30)
[2018-09-27] MEDS ORDERED: SCOPOLAMINE PATCH, 1.5MG PATCH.TD72 TD PRN (12:30)
[2018-09-27] MEDS ORDERED: OXYcodone 5 MG/5 ML ORAL.SOL UDC PO PRN (12:30)
[2018-09-27] MEDS ORDERED: PROMETHAZINE 25 MG/ML, 1ML IV PRN (12:30)
[2018-09-27] MEDS ORDERED: METOPROLOL 1 MG/ML, 5ML IV PRN (12:30)
[2018-09-27] MEDS ORDERED: NEOSTIGMINE 1 MG/ML, 10ML ONE (13:01)
[2018-09-27] MEDS ORDERED: ONDANSETRON 2MG/ML, 2ML ONE (13:01)
[2018-09-27] MEDS ORDERED: GLYCOPYRROLATE 0.2MG/1ML, 5ML ONE (13:01)
[2018-09-27] MEDS ORDERED: DEXAMETHASONE 4 MG/ML, 1ML ONE (13:01)
[2018-09-27] MEDS ORDERED: CEFAZOLIN 1,000 MG ONE (13:01)
[2018-09-27] MEDS ORDERED: ROCURONIUM 10MG/ML,5ML ONE (13:01)
[2018-09-27] MEDS ORDERED: PROPOFOL 10 MG/ML, 20ML ONE (13:01)
[2018-09-27] MEDS ORDERED: MORPHINE SULFATE 4 MG/ML, 1ML ONE (13:04)
[2018-09-27] MEDS: HYDROmorphone 2 MG/ML, 1ML IVPush PRN ×4 (13:20→14:00)
[2018-09-27] MEDS: FENTANYL PF 100 MCG/2ML IV PRN ×2 (13:25→13:40)
[2018-09-27] MEDS ORDERED: HYDROmorphone 1 MG/ML, 1ML ONE ×2 (13:27→13:46)
[2018-09-27] MEDS ORDERED: OXYcodone 5 MG/5 ML ORAL.SOL UDC ONE (13:27)
[2018-09-27] MEDS ORDERED: FENTANYL PF 100 MCG/2ML ONE (13:27)
[2018-09-27] MEDS ORDERED: MEPERIDINE/PF 25MG/ML,1ML ONE (13:45)
[2018-09-27] MEDS: MIDAZOLAM 1 MG/ML, 2ML IV PRN ×2 (13:49→14:27)
[2018-09-27 15:00] VITALS: BP 94/59
[2018-09-27] MEDS ORDERED: HYDROmorphone 2 MG/ML, 1ML ONE ×2 (16:36→23:50)
[2018-09-27] MEDS: HYDROmorphone 1 MG/ML, 1ML IV PRN ×2 (16:42→23:53)
[2018-09-27] MEDS: ASPIRIN 81 MG TABLET EC PO SCH (18:19)
[2018-09-27] MEDS: CEFAZOLIN PMX 1GM/50ML 50 ML IVPB SCH (20:00)
[2018-09-27 20:04] VITALS: BP 111/62
[2018-09-27] MEDS: DOCUSATE 100 MG CAPSULE PO SCH (20:15)
[2018-09-27] MEDS: OXYcodone IR 5MG TABLET PO PRN (20:15)
[2018-09-27] MEDS ORDERED: CEFAZOLIN PMX 1GM/50ML 50 ML IVPB SCH (21:00)
[2018-09-28] MEDS: D5%-0.45NACL+KCL 20MEQ 1,000 ML IV SCH ×3 (00:23→20:00)
[2018-09-28] MEDS: OXYcodone IR 5MG TABLET PO PRN ×7 (00:24→22:26)
[2018-09-28 00:30] VITALS: BP 100/65
[2018-09-28] MEDS: CEFAZOLIN PMX 1GM/50ML 50 ML IVPB SCH (04:13)
[2018-09-28 04:20] VITALS: BP 97/62
[2018-09-28] MEDS ORDERED: DEXAMETHASONE 4 MG/ML, 1ML IVPush SCH (06:00)
[2018-09-28] MEDS: ASPIRIN 81 MG TABLET EC PO SCH ×2 (06:05→17:34)
[2018-09-28] MEDS ORDERED: HYDROmorphone 2 MG/ML, 1ML ONE ×3 (06:26→19:28)
[2018-09-28] MEDS: HYDROmorphone 1 MG/ML, 1ML IV PRN ×3 (06:29→19:32)
[2018-09-28] MEDS ORDERED: TAMSULOSIN 0.4 MG CAP.ER.24H ONE (06:43)
[2018-09-28] MEDS ORDERED: TAMSULOSIN 0.4 MG CAP.ER.24H PO SCH ×2 (07:00→09:00)
[2018-09-28 07:37] VITALS: BP 109/66
[2018-09-28] MEDS: ALLOPURINOL 300 MG TABLET PO SCH (09:17)
[2018-09-28] MEDS: DOCUSATE 100 MG CAPSULE PO SCH ×2 (09:17→20:47)
[2018-09-28] MEDS: LISINOPRIL 20 MG TABLET PO SCH (09:17)
[2018-09-28 12:57] VITALS: BP 115/68
[2018-09-28] MEDS: KETOROLAC 30 MG/1 ML IV SCH (17:34)
[2018-09-28] MEDS: ONDANSETRON 4 MG TABLET PO PRN (17:37)
[2018-09-28 20:20] VITALS: BP 98/62
[2018-09-29] MEDS ORDERED: HYDROmorphone 2 MG/ML, 1ML ONE (01:40)
[2018-09-29] MEDS: HYDROmorphone 1 MG/ML, 1ML IV PRN (01:44)
[2018-09-29] MEDS: KETOROLAC 30 MG/1 ML IV SCH ×2 (01:45→09:50)
[2018-09-29 02:22] VITALS: BP 96/59
[2018-09-29] MEDS: OXYcodone IR 5MG TABLET PO PRN ×3 (03:48→12:05)
[2018-09-29] MEDS: D5%-0.45NACL+KCL 20MEQ 1,000 ML IV SCH (05:41)
[2018-09-29] MEDS: ASPIRIN 81 MG TABLET EC PO SCH (05:51)
[2018-09-29 08:13] VITALS: BP 111/66
[2018-09-29] MEDS ORDERED: TAMS-11 PO (08:50)
[2018-09-29] MEDS ORDERED: OXYC5TAB3 PO (08:51)
[2018-09-29] MEDS: ALLOPURINOL 300 MG TABLET PO SCH (09:50)
[2018-09-29] MEDS: DOCUSATE 100 MG CAPSULE PO SCH (09:50)
[2018-09-29] MEDS: LISINOPRIL 20 MG TABLET PO SCH (09:50)
[2018-09-29] MEDS: ONDANSETRON 4 MG TABLET PO PRN (12:05)
== END 2018-09-29 14:20 | disposition home or self-care (01) | DRG 468 ==
LOC: ORIP 09-27 08:50 → 4NOR 09-27 14:57 → DCLOUNGE 09-29 14:10
PROVIDERS: ADMIT Orthopaedic Surgery; ATTEND Orthopaedic Surgery
PROC: 0SPA0JZ Removal of Synthetic Substitute from Right Hip Joint, Acetabular Surface, Open Approach (ICD-10-PCS; 2018-09-27)
PROC: 0SR Lower Joints, Replacement (ICD-10-PCS; principal; 2018-09-27 11:30)
DX: T84.030A Mechanical loosening of internal right hip prosthetic joint, initial encounter (principal); Y83.8 Other surgical procedures as the cause of abnormal reaction of the patient, or of later complication, without mention of misadventure at the time of the procedure; R33.9 Retention of urine, unspecified; I10 Essential (primary) hypertension; E11.9 Type 2 diabetes mellitus without complications; M89.551 Osteolysis, right thigh; M10.9 Gout, unspecified; Z86.74 Personal history of sudden cardiac arrest; I25.2 Old myocardial infarction; Y92.098 Other place in other non-institutional residence as the place of occurrence of the external cause; Z79.84 Long term (current) use of oral hypoglycemic drugs
CPT/HCPCS: 36415; 72170; J3490; 82962; 85014; 85018; 88305; C1713; G0378; J0171; J0690; J1100; J1170; J1885; J2175; J2250; J2405; J2704; J2710; J2795; J3010; J3370; Q0162; C1762; C1776; J2370; J3480; J7050; J7120

== ENCOUNTER → 2018-09-22 | Outpatient (CLI) | payer OTHER ==
[2018-09-22 15:36] LABS: MICROSCOPIC NOT IND
[2018-09-22 15:40] LABS: BASOPHILS # (AUTO) 0.02 x10^3/uL (0-0.1); BASOPHILS % (AUTO) 0 % (0-1); EOSINOPHILS # (AUTO) 0.04 x10^3/uL (0-0.4); EOSINOPHILS % (AUTO) 1 % (1-7); LYMPHOCYTES # (AUTO) 1.87 x10^3/uL (1-3.4); LYMPHOCYTES % (AUTO) 19 % (22-44); MD NO; MEAN CORPUSCULAR HEMOGLOBIN 30.9 pg (27.5-34.5); MEAN CORPUSCULAR HGB CONC 33.5 g/dL (33.2-36.2); MEAN PLATELET VOLUME 7.7 fL (7.4-10.4); MONOCYTES # (AUTO) 0.57 x10^3/uL (0.2-0.8); MONOCYTES % (AUTO) 6 % (2-9); NEUTROPHILS # (AUTO) 7.11 x10^3/uL (1.8-6.8); NEUTROPHILS % (AUTO) 74 % (42-75); PLATELET COUNT 241 x10^3/uL (130-400); RED BLOOD COUNT 5.28 x10^6/uL (4.38-5.82); RED CELL DISTRIBUTION WIDTH 15.7 % (9.4-14.8)
[2018-09-22 15:48] LABS: ALANINE AMINOTRANSFERASE 17 U/L (12-78); ALBUMIN 4.2 g/dL (3.4-5.0); ANION GAP 8 mmol/L (5-15); CALCIUM 9.9 mg/dL (8.5-10.1); CHLORIDE 105 mmol/L (98-107); CREATININE 1.33 mg/dL (0.7-1.3)
[2018-09-22 15:48] LABS: CULTURE INDICATED? NO
[2018-09-22 15:50] LABS: ALKALINE PHOSPHATASE 147 U/L (45-117); BILIRUBIN,TOTAL 1.1 mg/dL (0.2-1.0); TOTAL PROTEIN 7.8 g/dL (6.4-8.2)
== END | disposition home or self-care (01) ==
LOC: STAR 14:20
PROVIDERS: ATTEND Orthopaedic Surgery
DX: Z01.818 Encounter for other preprocedural examination (principal); T84.84XA Pain due to internal orthopedic prosthetic devices, implants and grafts, initial encounter; I21.9 Acute myocardial infarction, unspecified
CPT/HCPCS: 36415; 80053; 81003; 85025; 87081; 93005